=== PATIENT | female | born 1990 ===

== ENCOUNTER 2020-03-09 11:05 | Outpatient (REF) | payer MEDICAID, SELFPAY ==
[2020-03-09 19:44] LABS: Abs Immature Grans 0.03 10^3/uL (0.0-0.06); Absolute Basophil Count 0.06 10^3/uL (0.0-0.2); Absolute Monocyte Count 0.68 10^3/uL (0.1-0.8); Basophils % 0.5; Eosinophils % 0.9; HCT 43.2 % (36.0-46.0); HGB 14.6 g/dL (11.2-15.7); Immature Grans % 0.3; Lymphocytes % 22.5; MCH 30.9 pg (27.0-33.0); MCHC 33.8 % (32.0-36.0); MCV 91.3 fL (80-95); MPV 10.2 fL (8.0-11.0); Monocytes % 5.9; Neutrophils % 69.9; Nucleated RBC 0 %; Platelet Count 402 10^3/uL (130-400); RBC 4.73 10^6/uL (3.93-5.22); RDW 11.9 % (11.7-14.6); RDW-SD 39.9 fL; WBC 11.58 10^3/uL (4.4-10.8)
[2020-03-09 19:52] LABS: Iron 80 ug/dL (50-170); Total Iron Binding Capacity 284 ug/dL (250-450); Transferrin Sat 28 % (15-50)
[2020-03-09 20:04] LABS: Absolute Lymphocyte Count 2.61 10^3/uL (1.2-3.4); Absolute Neutrophil Count 8.09 10^3/uL (1.2-6.7)
[2020-03-09 20:10] LABS: AST 11 U/L (15-37); Albumin 3.9 g/dL (3.4-5.0); Alkaline Phosphatase 85 U/L (46-116); Anion Gap 8.4 mmol/L (3-11); BUN 12 mg/dL (7-18); Bilirubin, Total 0.3 mg/dL (0.2-1.0); CO2 26.6 mmol/L (21.0-32.0); CREATININE 0.81 mg/dL (0.55-1.02); Calcium 9.2 mg/dL (8.5-10.1); Calculated LDL 141 mg/dL (<100); Chloride 104 mmol/L (98-107); Cholesterol 202 mg/dL (<200); Ferritin 111 ng/mL (8-252); Glucose 86 mg/dL (74-106); HDL Cholesterol 38 mg/dL (40-60); Potassium 4.3 mmol/L (3.5-5.1); Sodium 139 mmol/L (136-145); TSH (W/Ref FT4) 0.83 uIU/mL (0.36-3.74); Triglyceride 115 mg/dL (<150)
[2020-03-09 21:13] LABS: Total Protein 7.8 g/dL (6.4-8.2)
[2020-03-09 21:14] LABS: ALT 25 U/L (14-59)
[2020-03-09 21:15] LABS: Vitamin B12 429 pg/mL (193-986)
[2020-03-11 04:31] LABS: Vitamin D 25 Total 31.6 ng/ml (30-100)
== END 2020-03-09 11:25 ==
LOC: NCHCN 11:05
PROVIDERS: Visit Provider Physician Assistant
DX: F41.9 Anxiety disorder, unspecified (principal); F33.9 Major depressive disorder, recurrent, unspecified; G47.9 Sleep disorder, unspecified; E66.9 Obesity, unspecified
CPT/HCPCS: 80053; 80061; 82306; 82607; 82728; 83540; 83550; 84443; 85025